=== PATIENT | female | born 2005 | race Two or more races ===

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

== ENCOUNTER 2025-06-29 00:31 | Emergency (ER) | payer OTHER, SELFPAY ==
[2025-06-29 01:08] VITALS: BP 112/66; PULSE 106; RESP 16; TEMP 36.7; O2SAT 97; BMI 20.6
[2025-06-29 01:44] LABS: COVID-19 Test Negative (Negative); IDNOW Serial# 58CA691E; Influenza B2 Negative (Negative)
--- OUTSIDE RECORDS SUMMARY | 2025-06-29 03:32 | XMS_ITS | Clinical Summary ---
Author Organization [facility] it[facility] Address [address] [place] [address] Care Team Providers Care Outsole Splicer Name Role Phone Unavailable Primary Care Provider Unavailabl e Social History Tobacco Use Types Packs/Day Years Used Date Smoking Tobacco: Never Assessed Comments Unknown Sex and Gender Information Value Date Recorded Sex Assigned at Not on file Legal Sex Female 8:39 PM EST Gender Identity Not on file Sexual Orientation Not on file Plan of Treatment Health Maintenance Due Date Last Done Comments Gonorrhea/Chlamydia Screening 2005 Varicella Vaccines (1 of 2 - 13+ 2-dose series) 2018 HPV Vaccines (1 - 3-dose series) 2020 Meningococcal B Vaccine (1 o f 2 - Standard) 2021 Annual Well Child Visit (3-2 1 years old) 07/30/2023 HIV Screening 07/30/2023 Hepatitis C Screening 07/30/2023 Social Influencers of Health Screening 07/30/2023 DTaP,Tdap,and Td Vaccines (1 - Tdap) 2024 Hepatitis B Vaccines (1 of 3 - 19+ 3-dose series) 2024 Depression Screening 07/05/2024 COVID-19 Vaccine (1 - 2024-2 6 season) 2025 Influenza Vaccine (#1) 2025 RSV Immunization Adult Patie nts (1 - 1-dose 75+ series) 2080 HIB Vaccines Aged Out No longer eligi ble based on patient's age to complete this topic Hepatitis A Vaccines Aged Out No long er eligible based on patient's age to complete this topic IPV Vaccines Aged Out No longer eligi ble based on patient's age to complete this topic MMR Vaccines Aged Out No longer eligi ble based on patient's age to complete this topic Meningococcal ACWY Vaccine Aged Out N o longer eligible based on patient's age to complete this topic Pneumococcal Vaccine: Pediat rics (0 to 5 Years) and At-Risk Patients (6 to 49 Years) Aged Out No longer eligible b ased on patient's age to complete this topic RSV Immunization Patients Un santos 20 months Aged Out No longer eligible b ased on patient's age to complete this topic
--- OUTSIDE RECORDS SUMMARY | 2025-06-29 03:32 | XMS_ITS | Encounter Summary ---
Author Organization [facility] Address [address] [place] [id number] Phone Care Team Providers Care Vocational Auto Body Instructor Name Role Phone Janee Peters MD Primary Care Provider [phone] Encounter Details Date Type Department Care Team (Late st Contact Info) Description 04/18/2014 Documentation [facility] Family Medicine [address] [place] [address] Family Medicine, Physician [address] [place] [address] Social History Tobacco Use Types Packs/Day Years Used Date Smoking Tobacco: Never Assessed Comments Unknown Sex and Gender Information Value Date Recorded Sex Assigned at Female 11/01/2024 11:11 AM EDT Legal Sex Female 5:15 PM EDT Gender Identity Female 11/01/2024 11:11 AM EDT Sexual Orientation Queer, pansexual, an d/or questioning 07/29/2023 4:12 PM EST documented as of this encounter Plan of Treatment Not on file documented as of this encounter Visit Diagnoses Not on filedocumented in this encounter Care Teams Vocational Auto Body Instructor Relationship Specialty Start Date End Date Janee Peters MD [address] [place] [id number] PCP - General Pediatrics 03/04/24 documented as of this encounter
--- OUTSIDE RECORDS SUMMARY | 2025-06-29 03:32 | XMS_ITS | Encounter Summary ---
Author Organization [facility] Address [address] [place] [phone] Phone Care Team Providers Care Shipping And Receiving Weigher Name Role Phone Janee Peters MD Primary Care Provider [phone] Encounter Details Date Type Department Care Team (Late st Contact Info) Description 04/19/2014 Documentation [facility] Family Medicine [address] [place] [address] Family Medicine, Physician [address] [place] [address] Social History Tobacco Use Types [...] on filedocumented in this encounter Care Teams Shipping And Receiving Weigher Relationship Specialty Start Date End Date Janee Peters MD [address] [place] [id number] PCP - General Pediatrics 03/04/24 documented as of this encounter
--- OUTSIDE RECORDS SUMMARY | 2025-06-29 03:32 | XMS_ITS | Encounter Summary ---
Author Organization [facility] Address [address] [place] [address] Phone Care Team Providers Care Can Filler Name Role Phone Janee Peters MD Primary Care Provider [phone] Encounter Details Date Type Department Care Team (Late st Contact Info) Description 02/18/2017 Conversion Encounter [facility] [address] [place] [address] Social History Tobacco Use Types Packs/Day Years [...] on filedocumented in this encounter Care Teams Can Filler Relationship Specialty Start Date End Date Janee Peters MD [address] [place] [address] PCP - General Pediatrics 03/04/24 documented as of this encounter
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
--- OUTSIDE RECORDS SUMMARY | 2025-06-29 03:33 | XMS_ITS | Clinical Summary ---
Author Organization [facility] Address [address] [place] [address] Phone Care Team Providers Care Senior Quality Control Inspector Name Role Phone Janee Peters MD Primary Care Provider [phone] Allergies No known active allergies Medications OLANZapine 7.5 MG tablet 4 Active hydrOXYzine 25 MG tabletIndicatio ns:Adjustment disorder with mixed anxiety and depressed mood Take 1 tablet (25 mg total) by mouth every 8 (eight) hours as needed for anxiety. 30 tablet 1 5 Active Scar Treatment Products (ScarAway) gelIndications: Scar Apply 1 Application topically daily as needed (scar). 20 g 1 5 Active Additional Information Patient not taking.Reported on 03/22/2025 Active Problems Problem Noted Date Diagnosed Date Abnormal vision 11/01/2024 Overview (11/01/2024): 10/2024: Seeing eyecare provider at [facility] since 2022. Due for checkup. Assessment & Plan (11/01/2024 11:17 AM EDT): Seeing eyecare provider at [facility] since 2022. Due for checkup. Wheeze 12/01/2023 Overview (12/01/2023): 12/01/2023 (age 18yr): URI symptoms x 2 weeks, exam remarkable only for decreased air movement and slight wheeze. Both much improved after albuterol neb today. - start advair discus 250 1 P BID for short course - follow up 2 weeks Assessment & Plan (12/01/2023 5:04 PM EDT): 12/01/2023 (age 18yr): URI symptoms x 2 weeks, exam remarkable only for decreased air movement and slight wheeze. Both much improved after albuterol neb today. - start advair discus 250 1 P BID for short course - follow up 2 weeks Nicotine abuse 07/14/2023 Assessment & Plan (07/14/2023 11:14 AM EST): Vaping nicotine multiple times a day. Psychiatrist at [facility] gave her a nicotine patch but she is not using. At this time she is not interested in weaning her nicotine use down Marijuana abuse 07/14/2023 Assessment & Plan (11/06/2024 7:01 PM EDT): Counseling done. Assessment & Plan (07/14/2023 11:16 AM EST): Using marijuana more than 5 times a day. Offered referral to help with substance abuse. Patient declines at this time. Patient is about to connect with a psychiatrist on 07/20/2023 and needs to connect with a therapist soon. Met with Cyndie driscoll, behavioral health care advocate, she will help connect Rin to a therapist. Weight loss, abnormal 01/20/2022 Assessment & Plan (07/14/2023 11:13 AM EST): Followed by [facility] gastroenterology. Has an appointment tomorrow. Workup to date has been negative. Patient was given omeprazole but is not taking it. It looks like her weight loss was likely related to her mental health issues. Since she started the olanzapine her weight has gone up. Assessment & Plan (03/23/2022 3:08 PM EDT): Eating much better and her weight is now up. I wonder if her sertraline was contributing to her weight loss. Assessment & Plan (01/29/2022 3:04 PM EDT): I suspect Michaelle is dealing with an eating disorder. They have been trying to do better this past week. Unfortunately they have still lost weight. I am recommending 3 meals and 2 snacks a day. Adding fats to all meals. Adding PediaSure or [place] instant breakfast twice a day. Follow-up for weight check in 2 weeks. A call has been placed to her therapist, Merced, at [facility] requesting callback. Michaelle has signed a release for me to speak to Merced. I plan to alert me again to my concerns about this eating disorder. Assessment & Plan (01/20/2022 1:08 PM EDT): Significant wt loss Thought of food and smell of food makes Rin nauseas No hx laxitive use, vomiting, Does fear being too heavy Has lost 12 # in the past 3 months Will check some screening labs and have Rin follow up with PCP [facility] Stress import of frequent small meals - spoonfuls of PB, protein rich foods. Advised to discussed eating issue with therapist To follow up with Dr Bartholomew PCP in the next 1-2 weeks. Personal history of COVID-19 09/26/2020 Overview (03/23/2022): Covid + 02/2022 Early 07/2020 per family. Tested at [facility] (we have no record of this test). Mother was symptomatic. Desi had very mild symptoms & recovered completely/ 09/26/2020: post covid sport clearance was completed today Assessment & Plan (03/23/2022 3:07 PM EDT): 07/2020 - mild and the middle of February of this year. Also mild illness. Needs COVID 19 booster but will hold for 3 months from her infection in February. Assessment & Plan (03/31/2021 3:42 PM EDT): July 2020. Mild illness. Complete recovery Assessment & Plan (09/26/2020 2:07 PM EDT): post covid sport clearance was completed today Gender identity disorder, adolescent 09/11/2020 Overview (10/30/2022): 09/11/2020 prefers it/it's/they pronouns. Identifies as non-binary. Does not want to be referred to as a girl. Declined referral to Gender Identity clinic at [facility] at this time 08/27/2021: Preferred name Michaelle . Preferred pronouns they/them Diagnosis load October 2022 Assessment & Plan (03/31/2021 3:37 PM EDT): Goes by Rin Pronouns = they, them Adjustment disorder with mixed anxiety and depre ssed mood 05/27/2020 Overview (11/01/2024): Connected to [facility] therapist at [facility] 08/02/20 08/07/2020 : Low dose prozac started 10 mg QOD x 1 week 10/24: states side effects on prozac and zoloft 06/08-06/15/23 - [facility] Started on Olanzapine & hydroxyzine 07/27/23; consult completed. Services will be bridged. [facility] 10/2024: Seeing psychiatrist Dr. Danae Garcia at [facility] every 3 months. Is on Olanzapine 7.5mg. Has not had a panic attack in a while, but at times does get anxious at school. Does not have a therapist per se; says she is close with her mother and also her school counselor. Assessment & Plan (11/01/2024 11:02 AM EDT): Seeing psychiatrist Dr. Danae Garcia at [facility] every 3 months. Is on Olanzapine 7.5mg. Has not had a panic attack in a while, but at times does get anxious at school. Does not have a therapist per se; says she is close with her mother and also her school counselor. Assessment & Plan (07/29/2023 4:35 PM EST): As identified at consult, Michaelle has experienced episodes of depressed and elevated mood. Additional information and monitoring of symptoms is necessary for diagnostic specificity. Symptoms have been persistent since the 6th grade. Most recent episode of elevated mood was in June 2023. Depressed mood or other negative symptoms were denied at this moment. Referral to specialty services for Rin to begin outpatient manager intermediate therapy would be of benefit, considering mental health history. Follow up interventions focus on developing coping strategies would be scheduled, other referrals will be discussed and completed as necessary. PLAN: Follow up with [facility]; In office visit scheduled. Patient goal is to stay positive. Behavioral Recommendations: Attend to scheduled appt Assessment & Plan (07/14/2023 11:12 AM EST): 06/08-06/15/23 - [facility]. Started on Olanzapine & hydroxyzine. Patient has first outpatient appointment with psychiatrist at [facility] on the of this month. Patient has not yet connected with a therapist. Patient was also given a nicotine patch to help her wean off of her nicotine abuse. She has not started the patch. She is not interested in coming off the nicotine at this time. Assessment & Plan (03/23/2022 3:07 PM EDT): Stopped the sertraline at the beginning of February. Did not like the way she felt on it. Stopped seeing Manuela Jeffries and therapist, Merced. Patient and mom feel like they were not helping her. Family would like to connect with a new therapist. Met with medical supervisor home restoration service, Peter Minaya, today. Assessment & Plan (01/20/2022 10:10 AM EDT): Just started on sertraline at [facility]. Is in ongoing therapy advised discussing eating and weight concerns with therapist Assessment & Plan (10/21/2021 7:53 PM EDT): On no meds Assessment & Plan (08/27/2021 3:26 PM EST): Sees therapist weekly from [facility]. Sees Manuela Jeffries from [facility] for medications. Currently on sertraline 25 mg daily with trazodone nightly as needed. Has tried multiple other medications including fluoxetine, Escitalopram, bupropion, mirtazapine. Assessment & Plan (03/31/2021 3:37 PM EDT): Followed by Manuela Jeffries at [facility]. Started on Escitalopram at the end of February. Recently the dose was increased to 5 mg. Side effects of this medication could include nausea, diarrhea, abdominal pain. Has an appointment to see Manuela Jeffries today and they will discuss this at that visit. Michaelle is not excited to be back in school, certainly not in person. Assessment & Plan (10/29/2020 2:31 PM EDT): I am concerned that the increase of the sertraline dose from 25 mg to 50 mg may be triggering Michaelle's increase in suicidal thoughts and also the increased motor movements. Will wean sertraline from 50 mg to 25 mg daily Follow-up in 1 week, unless already admitted to [facility] bed. I am hoping that once [facility] that psychiatry will take over prescribing medication. Michaelle did not tolerate fluoxetine- Rin believed it caused them to start cutting. Sertraline 25 mg was felt to be ineffective. 50 mg may be causing current symptoms. Patient has an appointment tomorrow with Maryellen Singh, behavioral health provider. She met briefly with Maryellen driscoll. Assessment & Plan (10/24/2020 3:13 PM EDT): Increase sertraline to 50 mg Q HS ( 2 tabs of the 25 mg) Follow up in 1 week Will ask provider at [facility] to follow weekly until Desi is connected to [facility] Michaelle is to go back to in person school next week. They are concerned about this. But Michaelle's mother thinks it will be good for them to get back to school. While the PHQ-9 and SANDY-7 are both very positive Michaelle denies any risk of SI, their mother is keeping a close eye on them Assessment & Plan (09/26/2020 1:57 PM EDT): Increase sertraline to 25 mg QD To see maryellen Singh today - family missed last appointment - they both forgot. Desi & Desi's mother are aware that they must see provider if they are to get SSRI from md Follow up in 1-2 weeks on 25 mg of sertraline, if doing well will have follow up in another month Assessment & Plan (09/11/2020 1:51 PM EST): Reviewed Safety plan done by Cassidy Singh ( therapist) 09/02/20 patient did verbal contract for safety with me today Will start sertraline 12.5 mg Follow up in person in 1 week. If doing well will increase to 25 mg QD Discussed Non-Binary gender identity & request not to be identified as a girl. Desi is not looking for further intervention on gender issues at this time Desi requests that all visits be in person. Desi prefers to get out of the house Desi is hoping that provider can find in-person groups that it can attend Assessment & Plan (08/07/2020 4:46 PM EST): After counseling the patient/family on risks and benefits of SSRIs, we will start Fluoxetine at a trial dose of 10 mg Q O day for a week. Then QD for another week, if there were no side effects noted on Q O Day dosing. I will have them follow up with their provider in a week.The provider has agreed to work with me on monitoring Desi for medication side effects & will follow her closely until she is stable on a therapeutic dose. The family/patient knows to call immediately for significant side effects, especially significant agitation or any new thoughts about self-harm. Follow up with me in person (or virtually) in 2 weeks. Call sooner prn Assessment & Plan (08/01/2020 9:43 AM EST): Patient says she thinks of suicide but would never do it because it would hurt She denies any plan She talks with her mother about it She verbally contracts for safety with me & her mother. Crisis # discussed I will get her in to see her therapist w/in 1 week We discussed starting Fluoxetine - risks vs benefits, side effects. Patient must stay engage in therapy if I am to provide medication - she agrees Discussed improving sleeping habits, exercise & diet Sleep Hygiene reviewed Agree with getting Core Eval done by school Will arrange for medication to start soon as appointment with therapist is made Intrinsic atopic dermatitis 11/20/2009 Overview (11/01/2024): 10/2024: Some dry patches. Using Dove. Assessment & Plan (11/01/2024 11:19 AM EDT): Some dry patches. Using Dove. Assessment & Plan (05/01/2020 3:44 PM EDT): No issues No meds Resolved Problems Problem Noted Date Diagnosed Date Resolved Date History of UTI 03/23/2022 07/14/2023 Overview (03/23/2022): 03/06/2022 and diagnosed with a UTI. Her urine culture grew Klebsiella and she was treated with cefdinir. Assessment & Plan (03/23/2022 3:12 PM EDT): Will check UA today since Rin complains of intermittent abdominal pain. If UA is abnormal we will run a urine culture. No current urinary symptoms. Patient says her abdominal pain is only associated with eating. Nausea 10/21/2021 01/29/2022 Assessment & Plan (10/21/2021 12:26 PM EDT): I suggest learning breathing techniques to help Scratches 10/21/2021 01/29/2022 Overview (10/21/2021): On forearm, ?scratching self. Assessment & Plan (10/21/2021 7:57 PM EDT): Not addressed today. Will send to Dr. Bartholomew Encounters Date Type Department Care Team Description 05/22/2025 Telephone [facility] [address] [place] [address] Deepti Banerjee LPN Overdue labs from Last 3 Months Immunizations Immunization Administration Dates Next Due COVID-19 Pfizer, seasonal, 12+ years 07/14/2023 DTaP 01/01/2010 DTaP 5 10/04/2006, 6,2005,08/10 H1N1 06/27/2009,05/10/2009 HPV Vaccine 9 Valent 09/27/2017,06/08/2016 Hep A, ped/adol 09/27/2017,12/06/2006,06/30/2006 Hep B, ped/adol 03/11/2006,2005,2005 Hib (HbOC) 10/04/2006 Hib (PRP-T) 2005,2005,2005 IPV 01/01/2010, 6,2005,08/10 Influenza Split 07/07/2012,03/19/2011 Influenza, injectable, quadrivalent 04/10/2016,1 07/14/2014 Influenza, injectable, quadr ivalent, preservative free 07/14/2023,03/23/2022,03/31/2021,05/03,08/28/2019,09/27/2017,07/17/2013 Influenza, injectable, trivalent 06/27/2009,06/05 Influenza, injectable, triva lent, preservative free 11/01/2024 MMR 01/01/2010 MMRV 06/30/2006 Meningococcal B Trumenba 11/01/2024 Meningococcal Conj (Menactra) MCV4P 06/08/2016 Meningococcal Conj (Menquadfi) MCV4TT 07/14/2023 Pneumococcal Conjugate 10/04/2006,2005,2005,08/10 Tdap 12/27/2021,06/08/2016 Varicella 01/01/2010 Family History Medical History Relation Name Comments Asthma Brother Kg Mcdonald Eczema Brother Kg Mcdonald Obesity Brother Kg Mcdonald Obesity Father Kg Mcdonald Diabetes Maternal Grandfather Hypertension Maternal Grandmother Anxiety disorder Mother Laquita Fernandez Depression Mother Laquita Fernandez Diabetes Paternal Grandfather Stroke Paternal Grandmother Relation Name Status Comments Brother Kg Mcdonald Alive Brother: atopi c derm Father Kg Mcdonald Alive Father: Alive a nd well Maternal Grandfather Materna l grandfather: Diabetes mellitus Maternal Grandmother Alive Materna l aunt: Cancer, Cirrhosis, No Family history of No history of *Sudden /IN under 55, No Family history of No history of Hyperlipidemia Mother Laquita Fernandez Alive Mother: [place] castellanos and well Other Family history of Sudden /IN under age 55, Family history of Diabetes mellitus, Family history of Elevated cholesterol, Family history of *Dental caries, No family history of *CVA/Stroke, No family history of *Heart Disease, Family history of Migraines, Family history of Obesity Paternal Grandfather Paterna l grandfather: Hypertension, Diabetes, Parkinson, Seizures Paternal Grandmother Paterna l aunt: Cancer -ovarian Social History Tobacco Use Types Packs/Day Years Used Date Smoking Tobacco: Never Smokeless Tobacco: Never Alcohol Use Standard Drinks/Week Comments Never 0 (1 standard drink = 0.6 oz pur e alcohol) Hunger/Food Answer Date Recorded In the last 12 months, did y ou or your family ever eat less than you felt you should because there wasn't enough money for food? No 11/01/2024 Stable Housing Answer Date Recorded Are you worried that in the next 2 months you may not have stable housing? No 11/01/2024 Transportation Concerns Answer Date Rec orded In the last 12 months, have you or your family ever had to go without healthcare because you didn't have a way to get there? No 11/01/2024 Hazards in Home Answer Date Recorded Think about the place you li ve. Do you have problems with any of the following? Pests (mice or roaches), mold, no/not working smoke detectors, water leaks, no window guards. No 2024 Financing Utilities Answer Date Recorde d In the last 12 months, has t he [place], gas, oil, or water Favor threatened to shut off your services in your home? No 11/01/2024 Safety at Home Answer Date Recorded Are you or your family worried about feeling saf e in your home? No 11/01/2024 Outside Support Answer Date Recorded Do you feel that you need mo re support from other people or programs to help you care for yourself or your family? No 11/01/2024 Understanding Health Concerns Answer Da te Recorded Do you need help understandi ng your or your child's healthcare needs (diagnosis, medications, plan, etc.)? No 11/01/2024 Financing Health Concerns Answer Date R ecorded In the last 12 months, was t here a time when your child needed to see a doctor or get medications or supplies but could not because of cost? No 11/01/2024 Missing School or Work Answer Date Tyrone rded Did you or your child miss s chool or work because of a health problem that could have been avoided? No 11/01/2024 Child Education Answer Date Recorded Do you have concerns about y our/your child's learning or behavior in school, preschool, or daycare? No 11/01/2024 Comments No Sex and Gender Information Value Date Recorded Sex Assigned at Female 11/01/2024 11:11 AM EDT Legal Sex Female 5:15 PM EDT Gender Identity Female 11/01/2024 11:11 AM EDT Sexual Orientation Queer, pansexual, an d/or questioning 07/29/2023 4:12 PM EST Last Filed Vital Signs Vital Sign Reading Time Taken Comments Blood Pressure 109/74 01/29/2025 8:31 AM EDT Pulse 83 01/29/2025 8:31 AM EDT Temperature 37.7 C (99.8 F) 03/22/2025 9:03 AM EDT Respiratory Rate - - Oxygen Saturation 97% 12/01/2023 4:10 PM EDT Inhaled Oxygen Concentration - - Weight 53.4 kg (117 lb 12.8 oz) 03/22/2025 9:03 AM EDT Height 158.8 cm (5' 2.5 ) 11/01/2024 10 :43 AM EDT Body Mass Index 21.2 11/01/2024 10:43 AM EDT Plan of Treatment Health Maintenance Due Date Last Done Comments HIV Screening 2020 Hepatitis C Screening 2023 LDL-C/Cholesterol 07/14/2024 07/14/2023 Influenza Vaccines (#1) 2025 11/02/19, 07/14/2023, 03/23/2022, Additional history exists COVID-19 Vaccine ( - 2024-2 6 season) 2025 07/14/2023, 03/21/2021, 02/18/2021 Men B Vaccine (2 of 2 - Trum enba SCDM 2-dose series) 05/03/2025 11/01/2024 Glucose/HbA1C 03/22/2026 03/22/2025, 07/2 , 01/18/2018 DTaP,Tdap,and Td Vaccines (8 - Td or Tdap) 12/28/2031 12/27/2021, 06/08/2016, 01/01/2010, Additional history exists Hepatitis B Vaccines Completed 03/11/2006, 2005, 2005 HIB Vaccines Completed 10/04/2006, 12/2005, 2005, Additional history exists Pneumococcal Vaccine Completed 10/04/2006, 2005, 2005, Additional history exists IPV Vaccines Completed 01/01/2010, 01/2006, 2005, Additional history exists MMR Vaccines Completed 01/01/2010, 06/30/2006 Varicella Vaccines Completed 01/01/2010, 06/30/2006 HPV Vaccines Completed 09/27/2017, 06/08/2016 Hepatitis A Vaccines Completed 09/27/2017, 12/06/2006, 06/30/2006 Meningococcal Vaccine Completed 07/14/2023, 016 Chlamydia and Gonorrhea Screening Completed 02/01/2025, 11/01/2024, 07/26/2024, Additional history exists Procedures * Due to [place] law, this organization might not be sharing sensitive test results. Procedure Name Priority Date/Time Associated Diagnosis Comments POCT URINALYSIS DIPSTICK Routine 03/22/2025 9:12 AM EDT Dysuria CHLAMYDIA AND GONORRHEA, AMPLIFIED Routine 02/01/2025 8:52 AM EDT Encounter for screening examination for chlamydial infection LIPID PANEL Routine 07/14/2023 11:36 AM EST Lipid screening from Last 3 Months or Most Recently Relevant to Health Maintenance Results * Due to [place] law, this organization might not be sharing sensitive test results. * (ABNORMAL) POCT Urinalysis Dipstick (03/22/2025 9:12 AM EDT) Leukocytes, Urine 3+(A) Negative n [facility] Comment:500 Pierre/uL Nitrite, Urine +(A) Negative n eg pos [facility] Urobilinogen, Urine 1+ 0.1 - 1 [facility] Comment:2 mg/dL Protein, Urine neg Negative n [facility] pH, Urine 6.0 4.6 - 10 [facility] BLOOD 1+(A) Negative n [facility] Comment:25 Arturo/uL Specific [place], Urine 1.015 1.0003 - 1.03 [facility] Ketones, Urine neg Negative n [facility] Bilirubin, Urine, POC 1+(A) Negative n eg [facility] Comment:1 mg/dL Glucose neg Negative n [facility] Urine 03/22/2025 9:12 AM EDT 03/22/2025 9:12 AM EDT Narrative [facility] - 03/22/2025 9:12 AM EDT Charlie ([id number]) [facility] Gynecologist: 01 Testing Performed at [facility] [address] [place] [address] Funeral Sales Manager: Eva Max DO CLIA: [id number] Chelsie Armas NP POINT OF CARE TEST ORDERABLES Final Result Performing Organization Address City/State/[facility] Co de Phone Number [facility] [address] [place] [address] * Chlamydia and Gonorrhea, Amplified (02/01/2025 8:52 AM EDT) C trach TORRES Negative Negative [facility] N gonorrhoeae TORRES Negative Negative [facility] Urine (Urine) 02/01/2025 8:5 2 AM EDT 02/01/2025 Comment:UR Narrative [facility] - 02/02/2025 3:05 PM EDT Performed at: [address] [facility] [address], [place] [id number] Funeral Sales Manager: Scott Craig MD, Phone: [phone] us Monserrat Godwin NP LAB MICROBIOLOGY - GENERAL ORDER SHARA Final Result Performing Organization Address City/[facility] Co de Phone Number [facility] [address] [place] [address] * Lipid panel (07/14/2023 11:36 AM EST) [facility] Cholesterol, Total 161 (<170) MG/DL [facility] HDL 65 (>45) MG/DL [facility] Non-HDL Cholesterol 96 (<120) MG/DL [facility] Comment: Testing performed or reported by [facility], a Service of [facility], [address] [place] [id number] Scott Craig MD, Lance Crewmember [facility]# [id number] Blood 07/14/2023 11:3 6 AM EST 07/14/2023 11:39 AM EST us Farzana Bartholomew MD LAB BLOOD ORDERABLES Final Resul t Performing Organization Address City/[facility] Co de Phone Number [facility] from Last 3 Months or Most Recently Relevant to Health Maintenance Insurance [facility] Class Central [facility] Class Central Care Teams Senior Quality Control Inspector Relationship Specialty Start Date End Date Janee Peters MD [address] [place] [id number] PCP - General Pediatrics 03/04/24
--- OUTSIDE RECORDS SUMMARY | 2025-06-29 03:33 | XMS_ITS | Encounter Summary ---
Author Organization [facility] Address [address] [place] [id number] Phone Care Team Providers Care Manufacturing Storeperson Name Role Phone Janee Peters MD Primary Care Provider [phone] Encounter Details Date Type Department Care Team (Late st Contact Info) Description 04/20/2014 Documentation [facility] [place] Family Medicine [address] [place] [address] Family Medicine, Physician [address] [place] [address] Social History Tobacco Use Types [...] on filedocumented in this encounter Care Teams Manufacturing Storeperson Relationship Specialty Start Date End Date Janee Peters MD [address] [place] [id number] PCP - General Pediatrics 03/04/24 documented as of this encounter
--- OUTSIDE RECORDS SUMMARY | 2025-06-29 03:33 | XMS_ITS | Encounter Summary ---
Author Organization [facility] Address [address] [place] [id number] Phone Care Team Providers Care Finding Fastener Name Role Phone Janee Peters MD Primary Care Provider [phone] Encounter Details Date Type Department Care Team (Late st Contact Info) Description 04/17/2014 Documentation [facility] [place] [address] [place] [address] Family Medicine, Physician [address] [place] [address] Social History Tobacco Use Types [...] on filedocumented in this encounter Care Teams Finding Fastener Relationship Specialty Start Date End Date Janee Peters MD [address] [place] [phone] PCP - General Pediatrics 03/04/24 documented as of this encounter
[2025-06-29 04:05] VITALS: BP 103/68; PULSE 95; RESP 18; TEMP 36.4; O2SAT 98
--- NOTE | 2025-06-29 05:36 | ED.URI ---
HPI - URI/Sore Throat General Chief Complaint: Upper Respiratory Symptoms Stated Complaint: resp symptoms Time Seen by Provider: 06/29/25 03:23 Source: patient Mode of arrival: ambulatory Limitations: no limitations History of Present Illness ED Provider: Dr. Twila Caldwell HPI Narrative: 20 year old female previously healthy presenting with approximately 2?3 days of systemic and gastrointestinal symptoms. She reports subjective fever (mother has been ?touching my head? to check temperature), vomiting that began last evening around 19:30 and has prevented her from keeping Tylenol or other medications down, and ongoing diarrhea. She notes prior throat pain with visible ?red west? on her posterior pharynx, though the soreness has improved. She describes minimal cough, occurring mainly with forceful episodes, and denies significant shortness of breath except when coughing hard. She has taken one dose of acetaminophen yesterday but vomited shortly afterward. No other OTC medications taken. She is on antipsychotic medication and denies medication allergies. She is unsure if she received this season?s influenza vaccine, though she typically does so annually. She has been around others who are ill but offers no specific exposure details. Related Data Home Medications ?Medication ?Instructions ?Recorded ?Confirmed omeprazole 20 mg capsule,delayed 20 mg PO DAILY 06/09/23 06/09/23 release Previous Rx's ?Medication ?Instructions ?Recorded hydroxyzine HCl 25 mg tablet 25 mg PO BID PRN Anxiety 30 days 06/14/23 #60 tabs nicotine (polacrilex) 2 mg gum 2 mg buccal Q2H PRN Nicotine 06/14/23 Cravings 30 days #120 ea nicotine 14 mg/24 hr daily 14 mg transdermal DAILY 28 days 06/14/23 transdermal patch #28 ea olanzapine 7.5 mg tablet 7.5 mg PO BEDTIME 30 days #30 tabs 06/14/23 peg 400-propylene glycol 0.4 %-0.3 2 drp ophthalmic (eye) Q12H PRN 06/14/23 % eye gel drops (Systane Gel) Eye discharge/dry eyes 30 days #10 mL famotidine 20 mg tablet (Pepcid) 20 mg PO DAILY PRN abdominal 03/01/24 discomfort #30 tabs ondansetron 4 mg disintegrating 4 mg PO Q8H PRN nausea and 03/01/24 tablet vomiting #20 tabs promethazine 12.5 mg tablet 12.5 mg PO Q4-6H PRN nausea and 03/03/24 vomiting #10 tabs sucralfate 1 gram tablet (Carafate) 1 g PO BID #14 tabs 03/03/24 diphenhydramine HCl 25 mg capsule 50 mg (2 x 25 mg) PO Q6H PRN 04/01/24 headache, nausea, vomiting #20 caps metoclopramide HCl 10 mg tablet 10 mg PO Q6H PRN nausea and 04/01/24 (Reglan) vomiting #15 tabs ondansetron 8 mg disintegrating 8 mg PO Q8H PRN nausea and 04/01/24 tablet vomiting #15 tabs benzonatate 100 mg capsule 100 mg PO TID PRN cough #15 caps 06/26/24 benzonatate 100 mg capsule 100 mg PO TID PRN cough #10 caps 06/29/25 ondansetron 4 mg disintegrating 4 mg PO Q8H PRN nausea and 06/29/25 tablet vomiting #10 tabs Allergies Allergy/AdvReac Type Severity Reaction Status Date / Time No Known Allergies Allergy Verified 07/01/25 11:52 Review of Systems Review of Systems: as per HPI, full review of systems performed and negative but for the above mentioned pertinent positives and negatives. [facility] Past Medical History Medical History Medical clearance for psychiatric admission Eating disorder Seasonal depression Anxiety Depression Social History Social History Household Members: Family Housing: Apartment Alcohol intake: never Patient Tobacco Use Status: Never used Tobacco e-Cigarette/Vaping Use: Currently Using Substance Use Type: Marijuana Advance Directives: No Advance Directives Information Provided: No Do you have a plan to hurt others: No Plan service: No Sexual orientation: Straight/Heterosexual Physical Exam Exam: Exam: GENERAL: Ill-Appearing, appears uncomfortable. SKIN: Normal skin color for ethnicity, warm, dry, no rashes noted. HEENT:? Normocephalic, atraumatic, no stridor, dry mucous membranes, dentition intact, EOMI. NECK: Soft, supple, full ROM, midline structures nontender, no step-offs, no deformities, no lymphadenopathy. CHEST: Heart regular tachycardia, no murmurs, symmetric chest rise and fall. PULMONARY: Clear to auscultation bilaterally, diminished at the bases, no labored breathing, no wheezes/rhales/rhonchi. ABDOMINAL: Soft, nondistended, nontender, positive bowel sounds in all quadrants. : Deferred. MUSCULOSKELETAL: Normal tone, full range of motion, no deformities, no peripheral edema. NEURO: Alert and oriented x3, CN II through XII intact, equal strength and sensation bilateral upper and lower extremities, no focal neurologic deficits.? PSYCHIATRIC: Flat affect, fluid speech, good eye contact and appropriate demeanor. Vital Signs: Vital Signs: Last Vital Signs Temp 97.9 F 06/29/25 05:57 Pulse 99 06/29/25 05:57 Resp 16 06/29/25 05:57 BP 106/72 06/29/25 05:57 Pulse Ox 98 06/29/25 05:57 O2 Del Method Room Air 06/29/25 04:05 BMI result Body Mass Index 20.6 Medications Administered Discontinued Medications Generic Name Dose Route Start Last Admin Trade Name Eanq PRN Reason Stop Dose Admin Ibuprofen 400 mg 06/29/25 05:24 06/29/25 05:34 Ibuprofen 400 Mg Tablet PO 06/29/25 05:25 400 mg ONCE ONE Administration Ondansetron HCl 4 mg 06/29/25 05:24 06/29/25 05:35 Ondansetron Odt 4 Mg Tab.Rapdis TRANSLINGU 06/29/25 05:25 4 mg ONCE ONE Administration Medical Decision Making Medical Decision Making MDM Narrative: Patient presents today with flu-like symptoms. Differential diagnosis includes influenza, coronavirus, pneumonia, upper respiratory infection, among others. Most importantly, this patient is not in any acute respiratory distress. They have normal oxygen levels at room air. Problem #1: Influenza-like viral syndrome Assessment: Likely viral illness (influenza) given time course and symptom cluster. Patient outside ideal 72-hour window for oseltamivir initiation. Tamiflu also carries risk of worsening current GI symptoms. Plan: Hold oseltamivir at this time; risks outweigh benefits. Evidence supports holding oseltamivir in otherwise healthy adults outside the ideal window, as benefit is modest and GI risks may outweigh advantages. Provide symptomatic therapy: prescription cough medicine for home use. Return precautions reviewed: worsening symptoms, fever >7 days, or persistent vomiting despite medication. Problem #2: Nausea, vomiting, and dehydration Assessment: Persistent emesis preventing oral intake; clinical signs of dehydration. Plan: Administer antiemetic (nausea medication) in the ED. Encourage oral hydration once nausea controlled. Return if unable to keep fluids down or if symptoms worsen. Patient verbalized understanding and agreement with the above plan and requested ice water after antiemetic administration. Differential Diagnosis Differential Diagnoses: The differential diagnosis associated with the presentation includes (as above) Admission/Observation Consideration of admission/observation: Escalation of care including admission/observation considered Lab Data MDM Lab Attestation statement: I reviewed the patient's lab results. Labs: Lab Results 06/29/25 Range/Units 01:14 COVID-19 ([facility]) Negative (Negative) COVID-19 Clin Com See Note Influenza Type A ([facility]) Positive A (Negative) Influenza Type B ([facility]) Negative (Negative) Influenza A & B Note See Note External Record Review External record reviewed: Inpatient record Prescription Management I considered prescription management with: Pain Medication and Antiviral Social Determinants Patient?s care significantly limited by Social Determinants of Health including: Other Social Determinant of Health Discharge Plan Discharge Clinical Impression: Influenza A Patient Disposition: Home, Self-Care Instructions: Influenza (ED) Additional Instructions: Keep your mask on if you have to go into public for any reason while you are ill. Use Tylenol and Motrin around the clock for fever and body aches. Use Zofran (ondansetron) as needed for nausea. Return to the emergency department with any new or worsening symptoms including: Worsening shortness of breath, continued fevers despite medications, inability to tolerate food or drink. Call 911 with any medical emergency. Prescriptions: New ondansetron 4 mg tablet,disintegrating 4 mg PO Q8H PRN (Reason: nausea and vomiting) Qty: 10 0RF benzonatate 100 mg capsule 100 mg PO TID PRN (Reason: cough) Qty: 10 0RF No Action omeprazole 20 mg Capsule,Delayed Release(Dr/Ec) 20 mg PO DAILY nicotine 14 mg/24 hr Patch 24 Hour 14 mg transdermal DAILY 28 Days Qty: 28 1RF nicotine (polacrilex) 2 mg Gum 2 mg buccal Q2H PRN (Reason: Nicotine Cravings) 30 Days Qty: 120 1RF olanzapine 7.5 mg Tablet 7.5 mg PO BEDTIME 30 Days Qty: 30 1RF Systane Gel 0.4-0.3 % Drops,Gel 2 drp ophthalmic (eye) Q12H PRN (Reason: Eye discharge/dry eyes) 30 Days Qty: 10 0RF hydroxyzine HCl 25 mg Tablet 25 mg PO BID PRN (Reason: Anxiety) 30 Days Qty: 60 1RF promethazine 12.5 mg tablet 12.5 mg PO Q4-6H PRN (Reason: nausea and vomiting) Qty: 10 0RF sucralfate [Carafate] 1 gram tablet 1 g PO BID Qty: 14 0RF famotidine [Pepcid] 20 mg tablet 20 mg PO DAILY PRN (Reason: abdominal discomfort) Qty: 30 0RF ondansetron 4 mg tablet,disintegrating 4 mg PO Q8H PRN (Reason: nausea and vomiting) Qty: 20 0RF diphenhydramine HCl 25 mg capsule 50 mg PO Q6H PRN (Reason: headache, nausea, vomiting) Qty: 20 0RF metoclopramide HCl [Reglan] 10 mg tablet 10 mg PO Q6H PRN (Reason: nausea and vomiting) Qty: 15 0RF ondansetron 8 mg tablet,disintegrating 8 mg PO Q8H PRN (Reason: nausea and vomiting) Qty: 15 0RF benzonatate 100 mg capsule 100 mg PO TID PRN (Reason: cough) Qty: 15 0RF Stand Alone Forms: Work/School Release Interventions: ED Discharge Assessment Last Done: 06/29/25 05:57 Discharge Date/Time: 06/29/25 05:57 Print Language: [place]
[2025-06-29 05:53] VITALS: BP 106/72; PULSE 99; RESP 16; TEMP 36.6; O2SAT 98
[2025-06-29 05:57] VITALS: BP 106/72; PULSE 99; RESP 16; TEMP 36.6; O2SAT 98
== END 2025-06-29 05:57 | disposition home or self-care (01) ==
PROVIDERS: Emergency Provider Emergency Medicine; PCP Pediatrics
DX: J10.1 Influenza due to other identified influenza virus with other respiratory manifestations (principal); R50.9 Fever, unspecified; R05.9 Cough, unspecified; R06.02 Shortness of breath
CPT/HCPCS: 87502; 87635; 99283; 99284

== ENCOUNTER 2025-07-01 11:28 | Emergency (ER) | payer OTHER, SELFPAY ==
[2025-07-01 11:49] VITALS: BP 105/68; PULSE 67; RESP 18; TEMP 36.7; O2SAT 95; BMI 20.4
--- NOTE | 2025-07-01 11:50 | ED.GENADULT ---
HPI - General Adult General Chief complaint: General Medical Stated complaint: COUGH NAUSEA VOMITING Related Data Home Medications ?Medication ?Instructions ?Recorded ?Confirmed omeprazole 20 mg capsule,delayed 20 mg PO DAILY 06/09/23 06/09/23 release Previous Rx's ?Medication ?Instructions ?Recorded hydroxyzine HCl 25 mg tablet 25 mg PO BID PRN Anxiety 30 days 06/14/23 #60 tabs nicotine (polacrilex) 2 mg gum 2 mg buccal Q2H PRN Nicotine 06/14/23 Cravings 30 days #120 ea nicotine 14 mg/24 hr daily 14 mg transdermal DAILY 28 days 06/14/23 transdermal patch #28 ea olanzapine 7.5 mg tablet 7.5 mg PO BEDTIME 30 days #30 tabs 06/14/23 peg 400-propylene glycol 0.4 %-0.3 2 drp ophthalmic (eye) Q12H PRN 06/14/23 % eye gel drops (Systane Gel) Eye discharge/dry eyes 30 days #10 mL famotidine 20 mg tablet (Pepcid) 20 mg PO DAILY PRN abdominal 03/01/24 discomfort #30 tabs ondansetron 4 mg disintegrating 4 mg PO Q8H PRN nausea and 03/01/24 tablet vomiting #20 tabs promethazine 12.5 mg tablet 12.5 mg PO Q4-6H PRN nausea and 03/03/24 vomiting #10 tabs sucralfate 1 gram tablet (Carafate) 1 g PO BID #14 tabs 03/03/24 diphenhydramine HCl 25 mg capsule 50 mg (2 x 25 mg) PO Q6H PRN 04/01/24 headache, nausea, vomiting #20 caps metoclopramide HCl 10 mg tablet 10 mg PO Q6H PRN nausea and 04/01/24 (Reglan) vomiting #15 tabs ondansetron 8 mg disintegrating 8 mg PO Q8H PRN nausea and 04/01/24 tablet vomiting #15 tabs benzonatate 100 mg capsule 100 mg PO TID PRN cough #15 caps 06/26/24 benzonatate 100 mg capsule 100 mg PO TID PRN cough #10 caps 06/29/25 ondansetron 4 mg disintegrating 4 mg PO Q8H PRN nausea and 06/29/25 tablet vomiting #10 tabs Allergies Allergy/AdvReac Type Severity Reaction Status Date / Time No Known Allergies Allergy Verified 07/01/25 11:52 [facility] Past Medical History Medical History Medical clearance for psychiatric admission Eating disorder Seasonal depression Anxiety Depression Social History Social History Household Members: Family Housing: Apartment Alcohol intake: never Patient Tobacco Use Status: Never used Tobacco e-Cigarette/Vaping Use: Currently Using Substance Use Type: Marijuana Advance Directives: No Advance Directives Information Provided: No Do you have a plan to hurt others: No Plan service: No Sexual orientation: Straight/Heterosexual Physical Exam ED Vital Signs: Vital Signs - 24 hr 07/01/25 11:49 Temperature 98.1 F Pulse Rate 67 Respiratory Rate 18 Blood Pressure 105/68 Pulse Oximetry 95 Oxygen Delivery Method Room Air BMI result Body Mass Index 20.4 Course Course Course Narrative: Rapid medical examination performed in triage by Malissa Mcdonald PA-C: Patient is a 20 year old female presenting to the emergency department feeling generally unwell. Patient states that she was diagnosed with the flu 2 days ago and continues to feel poorly. Patient states that she has not been eating and drinking well and is concerned she is dehydrated. Detailed physical exam and review of systems are deferred to the district manager primary care sales. Labs ordered. Patient placed back in the waiting room pending room availability and results. Patient left the department without completing treatment. Patient left the department before myself or any of the other emergency department clinicians could explain to or review with the patient; physical exam findings, need or lack there of for additional testing, need or lack there of for a procedure to be performed, need or lack there of for hospital admission / transfer, need or lack there of for prescription medication, treatment options, or a treatment plan. Patient's limited physical exam performed in triage showed a non-toxic individual with appropriate breathing, alert and oriented, and ambulating without assistance. Discharge Plan Discharge Clinical Impression: Diagnosis unknown Patient Disposition: Left W/O Completing Treatment Prescriptions: No Action omeprazole 20 mg Capsule,Delayed Release(Dr/Ec) 20 mg PO DAILY nicotine 14 mg/24 hr Patch 24 Hour 14 mg transdermal DAILY 28 Days Qty: 28 1RF nicotine (polacrilex) 2 mg Gum 2 mg buccal Q2H PRN (Reason: Nicotine Cravings) 30 Days Qty: 120 1RF olanzapine 7.5 mg Tablet 7.5 mg PO BEDTIME 30 Days Qty: 30 1RF Systane Gel 0.4-0.3 % Drops,Gel 2 drp ophthalmic (eye) Q12H PRN (Reason: Eye discharge/dry eyes) 30 Days Qty: 10 0RF hydroxyzine HCl 25 mg Tablet 25 mg PO BID PRN (Reason: Anxiety) 30 Days Qty: 60 1RF promethazine 12.5 mg tablet 12.5 mg PO Q4-6H PRN (Reason: nausea and vomiting) Qty: 10 0RF sucralfate [Carafate] 1 gram tablet 1 g PO BID Qty: 14 0RF ondansetron 4 mg tablet,disintegrating 4 mg PO Q8H PRN (Reason: nausea and vomiting) Qty: 10 0RF benzonatate 100 mg capsule 100 mg PO TID PRN (Reason: cough) Qty: 10 0RF famotidine [Pepcid] 20 mg tablet 20 mg PO DAILY PRN (Reason: abdominal discomfort) Qty: 30 0RF ondansetron 4 mg tablet,disintegrating 4 mg PO Q8H PRN (Reason: nausea and vomiting) Qty: 20 0RF diphenhydramine HCl 25 mg capsule 50 mg PO Q6H PRN (Reason: headache, nausea, vomiting) Qty: 20 0RF metoclopramide HCl [Reglan] 10 mg tablet 10 mg PO Q6H PRN (Reason: nausea and vomiting) Qty: 15 0RF ondansetron 8 mg tablet,disintegrating 8 mg PO Q8H PRN (Reason: nausea and vomiting) Qty: 15 0RF benzonatate 100 mg capsule 100 mg PO TID PRN (Reason: cough) Qty: 15 0RF Discharge Date/Time: 07/01/25 17:14
--- OUTSIDE RECORDS SUMMARY | 2025-07-01 17:11 | XMS_ITS | Clinical Summary ---
Author Organization [facility] Address [address] [place] [address] Care Team Providers Care Doper Name Role Phone Unavailable Primary Care Provider [...]
--- OUTSIDE RECORDS SUMMARY | 2025-07-01 17:11 | XMS_ITS | Clinical Summary ---
Author Organization [facility] Address [address] [place] [address] Phone Care Team Providers Care Veneer Sheet Repairer Name Role Phone Janee Peters MD Primary Care Provider [phone] Allergies No known active allergies Medications OLANZapine [...] Overview (11/01/2024): 10/2024: Seeing eyecare provider at [facility] since 2022. Due for checkup. Assessment & Plan (11/01/2024 11:17 AM EDT): Seeing eyecare provider at [facility] since 2022. Due for checkup. Wheeze [...] nicotine multiple times a day. Psychiatrist at [facility] gave her a nicotine patch but she [...] soon. Met with Cyndie driscoll, behavioral health personal care aid, she will help connect Rin to a therapist. Weight loss, abnormal 01/20/2022 Assessment & Plan (07/14/2023 11:13 AM EST): Followed by [facility] gastroenterology. Has an appointment tomorrow. Workup to [...] fats to all meals. Adding PediaSure or Alabaster instant breakfast twice a day. Follow-up for weight check in 2 weeks. A call has been placed to her therapist, [place], at [facility] in [facility] requesting [...] 02/2022 Early 07/2020 per family. Tested at [facility] (we have no record of this test). [...] Declined referral to Gender Identity clinic at [facility] at this time 08/27/2021: Preferred name Michaelle . Preferred pronouns they/them Diagnosis load October 2022 Assessment & Plan (03/31/2021 3:37 PM EDT): Goes by Rin Pronouns = they, them Adjustment disorder with mixed anxiety and depre ssed mood 05/27/2020 Overview (11/01/2024): Connected to [facility] therapist at [facility] 08/02/20 08/07/2020 : Low dose prozac started 10 mg QOD x 1 week 10/24: states side effects on prozac and zoloft 06/08-06/15/23 - [facility]. Started on Olanzapine & hydroxyzine 07/27/23; consult completed. Services will be bridged. [facility] 10/2024: Seeing psychiatrist Dr. Danae Garcia at [facility] every 3 months. Is on Olanzapine 7.5mg. Has not had a panic attack in a while, but at times does get anxious at school. Does not have a therapist per se; says she is close with her mother and also her school counselor. Assessment & Plan (11/01/2024 11:02 AM EDT): Seeing psychiatrist Dr. Danae Garcia at [facility] every 3 months. Is on Olanzapine 7.5mg. [...] completed as necessary. PLAN: Follow up with [facility]; In office visit scheduled. Patient goal is to stay positive. Behavioral Recommendations: Attend to scheduled appt Assessment & Plan (07/14/2023 11:12 AM EST): 06/08-06/15/23 - [facility]. Started on Olanzapine & hydroxyzine. Patient has first outpatient appointment with psychiatrist at [facility] on the of this month. Patient [...] with a new therapist. Met with medical manager nursing home, Peter Minaya, today. Assessment & Plan (01/20/2022 10:10 AM EDT): Just started on sertraline at [facility]. Is in ongoing therapy advised discussing eating and weight concerns with therapist Assessment & Plan (10/21/2021 7:53 PM EDT): On no meds Assessment & Plan (08/27/2021 3:26 PM EST): Sees therapist weekly from [facility]. Sees Manuela Jeffries from [facility] for medications. Currently on sertraline 25 mg daily with trazodone nightly as needed. Has tried multiple other medications including fluoxetine, Escitalopram, bupropion, mirtazapine. Assessment & Plan (03/31/2021 3:37 PM EDT): Followed by Manuela Jeffries at [facility]. Started on Escitalopram at the [...] hoping that once Mich[facility] is [facility] that psychiatry will take over [...] in 1 week Will ask provider at [facility] to follow weekly until Desi is connected to [facility] Michaelle is to go back to in [...] if they are to get SSRI from [place] Follow up in 1-2 weeks on 25 [...] Type Department Care Team Description 05/22/2025 Telephone [facility] [address] [place] [address] Deepti Banerjee LPN Overdue labs [...] Family history of No history of *Sudden /ME under 55, No Family history of No history of Hyperlipidemia Mother Laquita Fernandez Alive Mother: [place] castellanos and well Other Family history of Sudden /ME under age 55, Family history of Diabetes [...] the last 12 months, has t he [employer], gas, oil, or water [employer] threatened to shut off your services in [...] Additional history exists Procedures * Due to [place] law, this organization might not be sharing [...] to Health Maintenance Results * Due to [place] law, this organization might not be sharing sensitive test results. * (ABNORMAL) POCT Urinalysis Dipstick (03/22/2025 9:12 AM EDT) Leukocytes, Urine 3+(A) Negative n [facility] Comment:500 Pierre/uL Nitrite, Urine +(A) Negative n eg pos [facility] Urobilinogen, Urine 1+ 0.1 - 1 [facility] Comment:2 mg/dL Protein, Urine neg Negative n [facility] pH, Urine 6.0 4.6 - 10 [facility] BLOOD 1+(A) Negative n [facility] Comment:25 Arturo/uL Specific Matador, Urine 1.015 1.0003 - 1.03 [facility] Ketones, Urine neg Negative n [facility] Bilirubin, Urine, POC 1+(A) Negative n eg [facility] Comment:1 mg/dL Glucose neg Negative n [facility] Urine 03/22/2025 9:12 AM EDT 03/22/2025 9:12 AM EDT Narrative [facility] - 03/22/2025 9:12 AM EDT Charlie ([id number]) [facility] 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 Dies: 01 Testing Performed at [facility] [address] [place] [address] Transportation Planning Engineer: Eva Max DO CLIA: [id number] Chelsie Armas NP POINT OF CARE TEST ORDERABLES Final Result Performing Organization Address City/State/[facility] Co de Phone Number [facility] [address] [place] [address] * Chlamydia and Gonorrhea, Amplified (02/01/2025 8:52 AM EDT) C trach TORRES Negative Negative [facility] N gonorrhoeae TORRES Negative Negative [facility] Urine (Urine) 02/01/2025 8:5 2 AM EDT 02/01/2025 Comment:UR Narrative [facility] - 02/02/2025 3:05 PM EDT Performed at: 01 [facility] [address], [place] [id number] Transportation Planning Engineer: Scott Craig MD, Phone: [phone] us Monserrat Godwin NP LAB MICROBIOLOGY - GENERAL ORDER SHARA Final Result Performing Organization Address City/[facility] Co de Phone Number [facility] [address] [place] [address] * Lipid panel (07/14/2023 11:36 AM EST) [facility] Cholesterol, Total 161 (<170) MG/DL [facility] HDL 65 (>45) MG/DL [facility] Non-HDL Cholesterol 96 (<120) MG/DL [facility] Comment: Testing performed or reported by [facility], a Service of [facility], [address] [place] [id number] Scott Craig MD, Export Administrator [facility]# [id number] Blood 07/14/2023 11:3 6 AM EST 07/14/2023 11:39 AM EST us Farzana Bartholomew MD LAB BLOOD ORDERABLES Final Resul t Performing Organization Address City/[facility] Co de Phone Number [facility] from Last 3 Months or Most Recently Relevant to Health Maintenance Insurance [facility] [employer] [facility] [employer] Care Teams Veneer Sheet Repairer Relationship Specialty Start Date End Date Janee Peters MD [address] [place] [address] PCP - General Pediatrics 03/04/24
--- OUTSIDE RECORDS SUMMARY | 2025-07-01 17:11 | XMS_ITS | Encounter Summary ---
Author Organization [facility] Address [address] [place] [address] Phone Care Team Providers Care Economics Instructor Name Role Phone Janee Peters MD Primary Care Provider [phone] Encounter Details Date Type Department Care Team (Late st Contact Info) Description 04/18/2014 Documentation [facility] [place] [facility] [address] [place] [address] Family Medicine, Physician [address] [place] [address] Social History Tobacco Use Types [...] on filedocumented in this encounter Care Teams Economics Instructor Relationship Specialty Start Date End Date Janee Peters MD [address] [place] [address] PCP - General Pediatrics 03/04/24 documented as of this encounter
--- OUTSIDE RECORDS SUMMARY | 2025-07-01 17:11 | XMS_ITS | Encounter Summary ---
Author Organization [facility] Address [address] [place] [phone] Phone Care Team Providers Care Production Support Developer Name Role Phone Janee Peters MD Primary Care Provider [phone] Encounter Details Date Type Department Care Team (Late st Contact Info) Description 04/19/2014 Documentation [facility] [place] [address] [place] [address] Family Medicine, Physician [address] [place] [address] Social History Tobacco Use Types [...] on filedocumented in this encounter Care Teams Production Support Developer Relationship Specialty Start Date End Date Janee Peters MD [address] [place] [id number] PCP - General Pediatrics 03/04/24 documented as of this encounter
--- OUTSIDE RECORDS SUMMARY | 2025-07-01 17:11 | XMS_ITS | Encounter Summary ---
Author Organization [facility] Address [address] [place] [address] Phone Care Team Providers Care Central Supply Manager Name Role Phone Janee Peters MD Primary Care Provider Encounter Details Date Type Department Care Team (Late st Contact Info) Description 02/18/2017 Conversion Encounter [facility] [address] [place] [address] Social History Tobacco Use Types Packs/Day Years [...] on filedocumented in this encounter Care Teams Central Supply Manager Relationship Specialty Start Date End Date Janee Peters MD [address] [place] [address] PCP - General Pediatrics 03/04/24 documented as of this encounter
--- OUTSIDE RECORDS SUMMARY | 2025-07-01 17:11 | XMS_ITS | Encounter Summary ---
Author Organization [facility] Address [address] [place] [address] Phone Care Team Providers Care Sas Sql Developer Name Role Phone Janee Peters MD Primary Care Provider [phone] Reason for Visit * Reason Comments Med Refill Encounter Details Date Type Department Care Team (Late st Contact Info) Description 11/02/2020 Refill [facility] [address] [place] [address] Farzana Bartholomew MD [address] [place] [address] Adjustment disorder with mixed anxiety and depressed [...] mood documented in this encounter Care Teams Sas Sql Developer Relationship Specialty Start Date End Date Janee Peters MD [address] [place] [address] PCP - General Pediatrics 03/04/24 documented as of this encounter
--- OUTSIDE RECORDS SUMMARY | 2025-07-01 17:11 | XMS_ITS | Encounter Summary ---
Author Organization [facility] Address [address] [place] [address] Phone Care Team Providers Care Divorce Lawyer Name Role Phone Janee Peters MD Primary Care Provider Encounter Details Date Type Department Care Team (Late st Contact Info) Description 04/20/2014 Documentation [facility] [address] [place] [address] Family Medicine, Physician [address] [place] [address] Social History Tobacco Use Types [...] on filedocumented in this encounter Care Teams Divorce Lawyer Relationship Specialty Start Date End Date Janee Peters MD [address] [place] [address] PCP - General Pediatrics 03/04/24 documented as of this encounter
--- OUTSIDE RECORDS SUMMARY | 2025-07-01 17:11 | XMS_ITS | Encounter Summary ---
Author Organization [facility] Address [address] [place] [address] Phone Care Team Providers Care Pig Lead Melter Helper Name Role Phone Janee Peters MD Primary Care Provider [phone] Encounter Details Date Type Department Care Team (Late st Contact Info) Description 04/17/2014 Documentation [facility] [place] Medicine [address] [place] [address] Family Medicine, Physician [address] [place] [address] Social History Tobacco Use Types [...] on filedocumented in this encounter Care Teams Pig Lead Melter Helper Relationship Specialty Start Date End Date Janee Peters MD [address] [place] [address] PCP - General Pediatrics 03/04/24 documented as of this encounter
== END 2025-07-01 17:14 | disposition left against medical advice (07) ==
LOC: HO.ED 17:08
PROVIDERS: Emergency Provider Emergency Medicine
DX: R05.9 Cough, unspecified (principal); R11.2 Nausea with vomiting, unspecified; Z53.29 Procedure and treatment not carried out because of patient's decision for other reasons
CPT/HCPCS: 99281

== ENCOUNTER 2025-07-03 05:16 | Emergency (ER) | payer OTHER, SELFPAY ==
--- OUTSIDE RECORDS SUMMARY | 2025-07-02 16:15 | XMS_ITS | Encounter Summary ---
Author Organization [facility] Address [address] [place] [address] Phone Care Team Providers Care Masonry Inspector Name Role Phone Janee Peters MD Primary Care Provider [phone] Reason for Visit * Reason Comments Follow-up [facility] er on 06/29/2025. Positive for Flu. Vomiting Encounter Details Date Type Department Care Team (Late st Contact Info) Description 07/02/2025 4:15 PM EST Office Visit [facility] [place] [address] [place] [address] Consuelo Talbot MD [address] [place] [address] Influenza A (Primary Dx); Nausea Social History Tobacco Use Types Packs/Day Years [...] PM EST documented as of this encounter Last Filed Vital Signs Vital Sign Reading Time Taken Comments Blood Pressure - - Pulse - - Temperature 37.6 C (99.6 F) 07/02/2025 4:07 PM EST Respiratory Rate - - Oxygen Saturation - - Inhaled Oxygen Concentration - - Weight 49.3 kg (108 lb 9.6 oz) 07/02/2025 4:07 P M EST Height - - Body Mass Index 19.55 11/01/2024 10:43 AM EDT documented in this encounter Progress Notes * Consuelo Talbot MD - 07/02/2025 4:15 PM EST Chief Complaint Follow-up ([facility] on 06/29/2025. Positive for Flu. ) and Vomiting Michaelle is a 20yr female who presents to the office with her mother, whose name is Laquita Fernandez. History of Present Illness Reviewed ED visit note Started feeling sick [place] [facility] [place] with nausea, vomiting, abd pain, cough and felt weak Dx'd with Flu A Was given scripts for Zofran and Benzonatate Was given 10 Zofran pills (4 mg) Has 2-3 left Last taken yesterday or the day before She doesn't like the way it tastes and doesn't like that it has to melt [place] warm this morning Still having nausea Has vomited 10 times today Not able to keep anything down Has tried to drink water and gingerale Tried soup and crackers, pineapple, yogurt Has not been able to keep anything down Stomach still hurts Has urinated twice today - last time about an hour ago Has lost 9 lbs since March Mom and brother are sick also Review of Systems Constitutional: Positive for fever. Negative for chills and fatigue. HENT: Positive for congestion and rhinorrhea. Negative for sore throat. Respiratory: Positive for cough. Negative for shortness of breath. Gastrointestinal: Positive for diarrhea, nausea and vomiting. Negative for abdominal pain. Musculoskeletal: Negative for myalgias. Skin: Negative for rash. Reviewed this visit: Medications Allergies Menstrual History Current Outpatient Medications: ??? benzonatate 100 MG capsule, TAKE 1 CAPSULE (100 MG) BY MOUTH THREE TIMES A DAY NEEDED FOR COUGH, Disp: , Rfl: ??? hydrOXYzine 25 MG tablet, Take 1 tablet (25 mg total) by mouth every 8 (eight) hours as needed for anxiety., Disp: 30 tablet, Rfl: 1 ??? OLANZapine 7.5 MG tablet, , Disp: , Rfl: ??? ondansetron ODT 4 MG disintegrating tablet, TAKE 1 TABLET BY MOUTH EVERY 8 HOURS NEEDED FOR NAUSEA AND VOMITING, Disp: , Rfl: ??? Scar Treatment Products (ScarAway) gel, Apply 1 Application topically daily as needed (scar)., Disp: 20 g, Rfl: 1 ??? ondansetron 4 MG tablet, Take 1 tablet (4 mg total) by mouth every 8 (eight) hours as needed for nausea or vomiting., Disp: 12 tablet, Rfl: 0 No Known Allergies Vitals: 07/02/25 1607 Temp: 99.6 ??F (37.6 ??C) TempSrc: Tympanic Weight: 108 lb 9.6 oz (49.3 kg) GEN: Thin, mildly ill appearing young woman, alert, no acute distress. EYES: Conjunctiva clear, no discharge, eyelids wnl. EARS: TMs wnl bilaterally. NOSE: No rhinorrhea, no nasal congestion. ORAL: Moist mucous membranes. No lesion, no erythema, exudate or petechiae. NECK: Supple, no significant adenopathy. COR: RRR, 84/min, nml S1 and S2, no rubs, murmurs, or gallops. PULM: Clear to auscultation. No grunting, flaring, or retracting. ABD: Soft, + BS, non-distended, sl tender centrally, no G/R, no organomegaly. EXT: Warm, well perfused. No results found for any visits on 07/02/25. Assessment and Plan Rin was seen today for follow-up and vomiting. Influenza A (Primary) - ondansetron 4 MG tablet; Take 1 tablet (4 mg total) by mouth every 8 (eight) hours as needed for nausea or vomiting., Starting 07/02/2025, Normal Nausea Discussed with patient and Mom at length HR of 84 reassuring and not consistent with dehydration though am concerned about her history aboutnot being able to keep anything down Will try Ondansetron pills she can swallow, which she prefers Can take 1-2 (4 mg) pills at a time Q 8 hours Take small sips of fluids frequently - they are going to store to get Pedialyte now Advised a glass an hour, at least Recommended going to ED if she continues not to be able to keep anything down - Mom understands Reviewed what to watch for Return as needed Advised recheck visit in 2 weeks with PCP because of weight loss - An independent historian was used today due to the patient's age or intellectual disability. On the date of this encounter, I personally performed, for a total time of 30 minutes, both [id number] and [id number]-[id number]-face services which included: reviewing records, obtaining patient history, performing a medically appropriate examination, counseling and educating the patient/family/caregiver and documenting clinical information in the electronic health record documented in this encounter Plan of Treatment Upcoming Encounters Date Type Department Care Team (Late st Contact Info) Description 07/16/2025 2:15 PM EST Office Visit [facility] [place] [address] [place] [address] Janee Peters MD [address] [place] [address] documented as of this encounter Visit Diagnoses Diagnosis Influenza A- Primary Influenza with other respiratory manifestations Nausea Nausea alone documented in this encounter Care Teams Masonry Inspector Relationship Specialty Start Date End Date Janee Peters MD [address] [place] [address] PCP - General Pediatrics 03/04/24 documented as of this encounter
[2025-07-03 07:22] LABS: Hematocrit 43.0 % (37.0-47.0); Hemoglobin 14.4 g/dl (12.0-16.0); Imm Gran Abs Auto 0.04 X10*3/uL (0.00-0.03); Imm Gran Pct Auto 0.5 % (0.0-0.4); Lymphocytes Absolute Auto 1.6 X10*3/uL (1.2-4.9); MANUAL DIFF FLAG SCAN; Mean Corpuscular HGB Conc 33.5 g/dl (31.0-35.0); Mean Corpuscular Hemoglobin 29.1 pg (27.0-33.0); Mean Corpuscular Volume 87.0 fL (80.0-98.0); NRBC Abs Auto 0.000 X10*3/uL (0.0-0.012); NRBC Pct Auto 0.0 /100WBC (0.0-0.2); Platelet Count 285 X10*3/uL (160-400); Red Blood Count 4.94 X10*6/uL (4.20-5.50); SCAN SMEAR FLAG 1; White Blood Count 8.7 X10*3/uL (4.8-10.8)
[2025-07-03 08:28] LABS: Anion Gap 17 (12-20); Carbon Dioxide 29 mmol/L (22-29); Chloride 95 mmol/L (96-108); Potassium 3.3 mmol/L (3.3-5.1); Sodium 138 mmol/L (135-145)
--- NOTE | 2025-07-03 08:44 | ED_ITS ---
HPI - Weakness General Stated complaint: Flu Like Time Seen by Provider: 07/03/25 08:41 Source: patient Mode of arrival: ambulatory Limitations: no limitations History of Present Illness ED Provider: HPI Narrative: 20-year-old female with a history of depression, cannabis use disorder, cyclic vomiting, recent diagnosis with the influenza a on 06/29/2025, reports that she still feels dehydrated and able to tolerate anything p.o., continues however to vape THC. Subjective fevers and chills, no dysuria no hematuria epigastric abdominal pain. Related Data Home Medications ?Medication ?Instructions ?Recorded ?Confirmed omeprazole 20 mg capsule,delayed 20 mg PO DAILY 06/09/23 release Previous Rx's ?Medication ?Instructions ?Recorded hydroxyzine HCl 25 mg tablet 25 mg PO BID PRN Anxiety 30 days 06/14/23 #60 tabs nicotine (polacrilex) 2 mg gum 2 mg buccal Q2H PRN Rick otine 06/14/23 Cravings 30 days #120 ea nicotine 14 mg/24 hr daily 14 mg transdermal DAILY 28 days 06/14/23 transdermal patch #28 ea olanzapine 7.5 mg tablet 7.5 mg PO BEDTIME 30 days #3 0 tabs 06/14/23 peg 400-propylene glycol 0.4 %-0.3 2 drp ophthalmic (e ye) Q12H PRN 06/14/23 % eye gel drops (Systane Gel) Eye discharge/dry eyes 3 0 days #10 mL famotidine 20 mg tablet (Pepcid) 20 mg PO DAILY PRN ab dominal 03/01/24 discomfort #30 tabs ondansetron 4 mg disintegrating 4 mg PO Q8H PRN nausea and 03/01/24 tablet vomiting #20 tabs promethazine 12.5 mg tablet 12.5 mg PO Q4-6H PRN nause a and 03/03/24 vomiting #10 tabs sucralfate 1 gram tablet (Carafate) 1 g PO BID #14 tab s 03/03/24 diphenhydramine HCl 25 mg capsule 50 mg (2 x 25 mg) PO Q6H PRN 04/01/24 headache, nausea, vomiting #20 caps metoclopramide HCl 10 mg tablet 10 mg PO Q6H PRN nause a and 09/28/24 (Reglan) vomiting #15 tabs ondansetron 8 mg disintegrating 8 mg PO Q8H PRN nausea and 04/01/24 tablet vomiting #15 tabs benzonatate 100 mg capsule 100 mg PO TID PRN cough #15 caps 06/26/24 benzonatate 100 mg capsule 100 mg PO TID PRN cough #10 caps 06/29/25 ondansetron 4 mg disintegrating 4 mg PO Q8H PRN nausea and 06/29/25 tablet vomiting #10 tabs ondansetron 4 mg disintegrating 4 mg PO Q8H PRN nausea and 07/03/25 tablet vomiting #4 tabs Allergies Allergy/AdvReac Type Severity Reaction Status Date / Time No Known Allergies Allergy Verified 07/01/25 11:52 Review of Systems 2 Constitutional: Constitutional: Reports as per [facility] Past Medical History Medical History Medical clearance for psychiatric admission Eating disorder Seasonal depression Anxiety Depression Social History Social History Household Members: Family Housing: Apartment Alcohol intake: never Patient Tobacco Use Status: Never used Tobacco e-Cigarette/Vaping Use: Currently Using Substance Use Type: Marijuana Advance Directives: No Advance Directives Information Provided: Yes service: No Sexual orientation: Straight/Heterosexual Physical Exam 2 Exam: Exam: ?General: ??looks age appropriate ?No scleral icterus, uvula midline, no tonsillar exudates Neck: No lymphadenopathy ?CV: RRR, no obvious murmurs appreciated ?Resp: ?No wheezing rales rhonchi no stridor moving air well Abd: ?Bowel sounds are present, mild epigastric tenderness no rebound no rigidity MSK: FROM, strength 5/5 all extremities Skin: Warm, dry, intact, ?Neuro: ?Alert and oriented x3, moving upper and lower extremities symmetrically, no obvious facial asymmetry noted, cranial nerves 2-12 intact Medical Decision Making Medical Decision Making MDM Narrative: 8:48 AM 07/03/2025 (Dr. Eddi Silvestre): Presenting with reports of nausea and vomiting, clinically does not appear to be dehydrated, and fairly benign abdominal exam, I spoke with the patient at length regarding using marijuana at the time of acute viral illness and her symptoms, she was seen on the and discharged home with Chitra she should continue utilizing that, see my discharge instructions Differential Diagnosis Differential Diagnoses: The differential diagnosis associated with the presentation includes (Dehydration, cyclic vomiting syndrome, electrolyte derangements, pneumonia) Admission/Observation Consideration of admission/observation: Escalation of care including admission/observation considered Lab Data MDM Lab Attestation statement: I reviewed the patient's lab results. 07/03/25 05:56 07/03/25 05:56 Labs: Lab Results 07/03/25 Range/Units 05:56 WBC 8.7 (4.8-10.8) X10*3/uL RBC 4.94 (4.20-5.50) X10*6/uL Hgb 14.4 (12.0-16.0) g/dl Hct 43.0 (37.0-47.0) % MCV 87.0 (80.0-98.0) fL MCH 29.1 (27.0-33.0) pg MCHC 33.5 (31.0-35.0) g/dl RDW 11.9 (11.0-16.0) % Plt Count 285 (160-400) X10*3/uL MPV 9.0 L (9.4-12.3) fL Immature Gran % (Auto) 0.5 H (0.0-0.4) % Neut % (Auto) 68.1 (45-73) % Lymph % (Auto) 18.7 L (20-40) % [place] % (Auto) 12.5 H (2-11) % Eos % (Auto) 0.0 (0-4) % Baso % (Auto) 0.2 (0-2) % Lymph # (Auto) 1.6 (1.2-4.9) X10*3/uL [place] # (Auto) 1.1 (0.1-1.2) X10*3/uL Eos # (Auto) 0.0 (0.0-0.4) X10*3/uL Baso # (Auto) 0.0 (0.0-0.2) X10*3/uL Abs Immat Gran (auto) 0.04 H (0.00-0.03) X10*3/uL Absolute Neuts (auto) 5.9 (2.0-8.3) x10*3/uL Absolute Nucleated RBC 0.000 (0.0-0.012) X10*3/uL Nucleated RBC % (auto) 0.0 (0.0-0.2) /100WBC Smear Tech's Comments VERIFIED Sodium 138 (135-145) mmol/L Potassium 3.3 (3.3-5.1) mmol/L Chloride 95 L (96-108) mmol/L Carbon Dioxide 29 (22-29) mmol/L Anion Gap 17 (12-20) Discharge Plan Discharge Clinical Impression: Nausea and vomiting, Cannabis use disorder Additional Instructions: Using cannabis is not helping you at this time, actually with a history of cyclic vomiting you should not be using any marijuana products in any form, you did receive fluids and Zofran and you can continue using Zofran at home, otherwise make sure to find the diet that works for you right now I recommend meat based broth with salt with a vegetables, meat throughout the day to keep yourself nourished, toast, and then completely avoiding marijuana and fallen up with the primary care physician, There was no indication that you were dehydrated based on blood work or physical examination, viral symptoms are worse on days 3-5 after the onset and so you she has been now on the final stages of this. Prescriptions: New ondansetron 4 mg tablet,disintegrating 4 mg PO Q8H PRN (Reason: nausea and vomiting) Qty: 4 0RF No Action omeprazole 20 mg Capsule,Delayed Release(Dr/Ec) 20 mg PO DAILY nicotine 14 mg/24 hr Patch 24 Hour 14 mg transdermal DAILY 28 Days Qty: 28 1RF nicotine (polacrilex) 2 mg Gum 2 mg buccal Q2H PRN (Reason: Nicotine Cravings) 30 Days Qty: 120 1RF olanzapine 7.5 mg Tablet 7.5 mg PO BEDTIME 30 Days Qty: 30 1RF Systane Gel 0.4-0.3 % Drops,Gel 2 drp ophthalmic (eye) Q12H PRN (Reason: Eye discharge/dry eyes) 30 Days Qty: 10 0RF hydroxyzine HCl 25 mg Tablet 25 mg PO BID PRN (Reason: Anxiety) 30 Days Qty: 60 1RF promethazine 12.5 mg tablet 12.5 mg PO Q4-6H PRN (Reason: nausea and vomiting) Qty: 10 0RF sucralfate [Carafate] 1 gram tablet 1 g PO BID Qty: 14 0RF ondansetron 4 mg tablet,disintegrating 4 mg PO Q8H PRN (Reason: nausea and vomiting) Qty: 10 0RF benzonatate 100 mg capsule 100 mg PO TID PRN (Reason: cough) Qty: 10 0RF famotidine [Pepcid] 20 mg tablet 20 mg PO DAILY PRN (Reason: abdominal discomfort) Qty: 30 0RF ondansetron 4 mg tablet,disintegrating 4 mg PO Q8H PRN (Reason: nausea and vomiting) Qty: 20 0RF diphenhydramine HCl 25 mg capsule 50 mg PO Q6H PRN (Reason: headache, nausea, vomiting) Qty: 20 0RF metoclopramide HCl [Reglan] 10 mg tablet 10 mg PO Q6H PRN (Reason: nausea and vomiting) Qty: 15 0RF ondansetron 8 mg tablet,disintegrating 8 mg PO Q8H PRN (Reason: nausea and vomiting) Qty: 15 0RF benzonatate 100 mg capsule 100 mg PO TID PRN (Reason: cough) Qty: 15 0RF Print Language: Belarusian
[2025-07-03 08:49] LABS: Alanine Aminotransferase 12 U/L (0-31); Albumin Level 4.6 g/dL (3.5-5.0); Alkaline Phosphatase 63 U/L (39-117); Aspartate Amino Transferase 24 U/L (5-31); Blood Urea Nitrogen 13 mg/dL (9-16); Estimated Glomerular Filt Rate > 60; Lipase 11 U/L (8-78); Magnesium 2.4 mg/dL (1.6-2.6); Total Protein 8.2 g/dL (6.5-8.0)
--- OUTSIDE RECORDS SUMMARY | 2025-07-03 08:50 | XMS_ITS | Encounter Summary ---
Author Organization [facility] Address [address] [place] [address] Phone Care Team Providers Care Document Control Coordinator Name Role Phone Janee Peters MD Primary Care Provider [phone] Encounter Details Date Type Department Care Team (Late st Contact Info) Description 04/20/2014 Documentation [facility] Family Medicine [address] [place] [address] Family Medicine, Physician [address] [place] [address] Social History Tobacco Use Types [...] as of this encounter Plan of Treatment Upcoming Encounters Date Type Department Care Team (Late st Contact Info) Description 07/16/2025 2:15 PM EST Office Visit [facility] [place] [address] [place] [address] Janee Peters MD [address], [place] [phone] documented as of this encounter Visit Diagnoses Not on filedocumented in this encounter Care Teams Document Control Coordinator Relationship Specialty Start Date End Date Janee Peters MD [address] [place] [address] PCP - General Pediatrics 03/04/24 documented as of this encounter
--- OUTSIDE RECORDS SUMMARY | 2025-07-03 08:50 | XMS_ITS | Clinical Summary ---
Author Organization [employer] [facility] ity Address [address] [place] [address] Care Team Providers Care Incinerator Plant Supervisor Name Role Phone Unavailable Primary Care Provider [...]
--- OUTSIDE RECORDS SUMMARY | 2025-07-03 08:50 | XMS_ITS | Encounter Summary ---
Author Organization [facility] Address [address] [place] [address] Phone Care Team Providers Care Glove Pairer Name Role Phone Janee Peters MD Primary Care Provider [phone] Encounter Details Date Type Department Care Team (Late st Contact Info) Description 04/17/2014 Documentation [facility] Family Medicine [address] [place] [address] Family Medicine, Physician [address] [place] [address] Social History Tobacco Use Types [...] Description 07/16/2025 2:15 PM EST Office Visit [facility] [place] [address] [place] [address] Janee Peters MD [address] [place], [place] [phone] documented as of this encounter Visit Diagnoses Not on filedocumented in this encounter Care Teams Glove Pairer Relationship Specialty Start Date End Date Janee Peters MD [address] [place] [address] PCP - General Pediatrics 03/04/24 documented as of this encounter
--- OUTSIDE RECORDS SUMMARY | 2025-07-03 08:50 | XMS_ITS | Encounter Summary ---
Author Organization [facility] Address [address] [place] [address] Phone Care Team Providers Care Php Web Developer Name Role Phone Janee Peters MD Primary Care Provider [phone] Reason for Visit * Reason Comments Med Refill Encounter Details Date Type Department Care Team (Late st Contact Info) Description 11/02/2020 Refill [facility] [place] [address] [place] [address] Farzana Bartholomew MD [address] [place] [address] Adjustment disorder with mixed anxiety and depressed [...] Description 07/16/2025 2:15 PM EST Office Visit [facility] [place] [address] [place] [address] Janee Peters MD [address] [place] [address] documented as of this encounter Visit Diagnoses Diagnosis Adjustment disorder with mixed anxiety and depressed mood documented in this encounter Care Teams Php Web Developer Relationship Specialty Start Date End Date Janee Peters MD [address] [place] [address] PCP - General Pediatrics 03/04/24 documented as of this encounter
--- OUTSIDE RECORDS SUMMARY | 2025-07-03 08:50 | XMS_ITS | Clinical Summary ---
Author Organization [facility] Address [address] [place] [address] Phone Care Team Providers Care Electrical Electronics Engineer Name Role Phone Janee Peters MD Primary Care Provider [phone] Allergies No known active allergies Medications OLANZapine 7.5 MG tablet 07/12/19 24 Active hydrOXYzine 25 MG tabletIndications: Adjustment disorder with mixed anxiety and depressed mood Take 1 tablet (25 mg total) by mouth every 8 (eight) hours as needed for anxiety. 30 tablet 1 11/02/19 25 Active Scar Treatment Products (ScarAway) gelIndications:Sca r Apply 1 Application topically daily as needed (scar). 20 g 1 11/02/19 25 Active benzonatate 100 MG capsule TAKE 1 CAPSULE (100 MG) BY MOUTH THREE TIMES A DAY NEEDED FOR COUGH 06/29/20 25 Active ondansetron ODT 4 MG disintegrating tablet TAKE 1 TABLET BY MOUTH EVERY 8 HOURS NEEDED FOR NAUSEA AND VOMITING 06/29/20 25 Active ondansetron 4 MG tabletIndications: Influenza A Take 1 tablet (4 mg total) by mouth every 8 (eight) hours as needed for nausea or vomiting. 12 tablet 07/02/20 25 Active Active Problems Problem Noted Date Diagnosed Date Abnormal vision 11/01/2024 Overview (11/01/2024): 10/2024: Seeing eyecare provider at [facility] since 2022. Due for checkup. Assessment & Plan (11/01/2024 11:17 AM EDT): Seeing eyecare provider at [facility] since 2022. Due for checkup. Wheeze [...] nicotine multiple times a day. Psychiatrist at [facility] gave her a nicotine patch but [...] with a therapist soon. Met with Cyndie Jimenez today, behavioral health child care aide, she will help connect Rin to a therapist. Weight loss, abnormal 01/20/2022 Assessment & Plan (07/14/2023 11:13 AM EST): Followed by [facility] gastroenterology. Has an appointment tomorrow. [...] fats to all meals. Adding PediaSure or [place] instant breakfast twice a day. Follow-up for weight check in 2 weeks. A call has been placed to her therapist, Merced, at [facility] in [facility] requesting callback. Michaelle has signed a release for me to speak to Merced. I plan to alert me again to my concerns about this eating disorder. Assessment & Plan (01/20/2022 1:08 PM EDT): Significant wt loss Thought of food and smell of food makes Michaelle nauseas No hx laxitive use, vomiting, Does [...] 02/2022 Early 07/2020 per family. Tested at [facility] (we have no record of this [...] Declined referral to Gender Identity clinic at [facility] at this time 08/27/2021: Preferred name Michaelle . Preferred pronouns they/them Diagnosis load October 2022 Assessment & Plan (03/31/2021 3:37 PM EDT): Goes by Rin Pronouns = they, them Adjustment disorder with mixed anxiety and depre ssed mood 05/27/2020 Overview (11/01/2024): Connected to [facility] therapist at [facility] 08/02/20 08/07/2020 : Low dose prozac started 10 mg QOD x 1 week 10/24: states side effects on prozac and zoloft 06/08-06/15/23 - [facility]. Started on Olanzapine & hydroxyzine 07/27/23; consult completed. Services will be bridged. Caleb 10/2024: Seeing psychiatrist Dr. Danae Garcia at [facility] every 3 months. Is on Olanzapine 7.5mg. Has not had a panic attack in a while, but at times does get anxious at school. Does not have a therapist per se; says she is close with her mother and also her school counselor. Assessment & Plan (11/01/2024 11:02 AM EDT): Seeing psychiatrist Dr. Danae Garcia at [facility] every 3 months. Is on [...] this moment. Referral to specialty services for Michaelle to begin outpatient nursing home therapy would be of benefit, considering mental health history. Follow up interventions focus on developing coping strategies would be scheduled, other referrals will be discussed and completed as necessary. PLAN: Follow up with [facility]; In office visit scheduled. Patient goal is to stay positive. Behavioral Recommendations: Attend to scheduled appt Assessment & Plan (07/14/2023 11:12 AM EST): 06/08-06/15/23 - [facility] at [facility]. Started on Olanzapine & hydroxyzine. Patient has first outpatient appointment with psychiatrist at [facility] on the of this month. Patient has [...] with a new therapist. Met with medical home health billing specialist, Peter Minaya, today. Assessment & Plan (01/20/2022 10:10 AM EDT): Just started on sertraline at [facility]. Is in ongoing therapy advised discussing eating and weight concerns with therapist Assessment & Plan (10/21/2021 7:53 PM EDT): On no meds Assessment & Plan (08/27/2021 3:26 PM EST): Sees therapist weekly from [facility]. Sees Manuela Jeffries from [facility] for medications. Currently on sertraline 25 mg daily with trazodone nightly as needed. Has tried multiple other medications including fluoxetine, Escitalopram, bupropion, mirtazapine. Assessment & Plan (03/31/2021 3:37 PM EDT): Followed by Manuela Jeffries at [facility]. Started on Escitalopram at the [...] hoping that once Michaelle [facility] that psychiatry will take over prescribing [...] in 1 week Will ask provider at [facility] to follow weekly until [facility] is connected to [facility] Michaelle is to go back to in person school next week. They are concerned about this. But Michaelel's mother thinks it will be good for [...] if they are to get SSRI from pr Follow up in 1-2 weeks on 25 mg of sertraline, if doing well will have follow up in another month Assessment & Plan (09/11/2020 1:51 PM EST): Reviewed Safety plan done by Desi & Maryellen Singh ( therapist) 09/02/20 patient did verbal [...] Encounters Date Type Department Care Team Description 07/02/2025 4:15 PM EST Office Visit [facility] [address] [place] [address] Consuelo Talbot MD Influenza A (Primary Dx); Nausea 05/22/2025 Telephone [facility] [address] [place] [address] Deepti Banerjee LPN Overdue labs from Last [...] Hypertension Maternal Grandmother Anxiety disorder Mother Laquita John Depression Mother Laquita John Diabetes Paternal Grandfather Stroke Paternal Grandmother Relation Name Status Comments Brother Kg Mcdonald Alive Brother: atopi c derm Father Kg Mcdonald Alive Father: Alive a nd well Maternal Grandfather Materna l grandfather: Diabetes mellitus Maternal Grandmother Alive Materna l aunt: Cancer, Cirrhosis, No Family history of No history of *Sudden /[place] under 55, No Family history of No history of Hyperlipidemia Mother Laquita John Alive Mother: [place] castellanos and well Other Family history of Sudden /[place] under age 55, Family history of Diabetes [...] Pulse 83 01/29/2025 8:31 AM EDT Temperature 37.6 C (99.6 F) 07/02/2025 4:07 PM EST Respiratory Rate - - Oxygen Saturation 97% 12/01/2023 4:10 PM EDT Inhaled Oxygen Concentration - - Weight 49.3 kg (108 lb 9.6 oz) 07/02/2025 4:07 P M EST Height 158.8 cm (5' 2.5 ) 11/01/2024 10:43 AM ED T Body Mass Index 19.55 11/01/2024 10:43 AM EDT Plan of Treatment Upcoming Encounters Date Type Department Care Team (Late st Contact Info) Description 07/16/2025 2:15 PM EST Office Visit [facility] [place] [address] [place] [address] Janee Peters MD [address] [place] [address] Health Maintenance Due Date Last Done Comments HIV Screening 2020 Hepatitis C Screening 2023 LDL-C/Cholesterol 07/14/2024 07/14/2023 Influenza Vaccines (#1) 2025 11/02/19, 07/14/2023, 03/23/2022, Additional history exists COVID-19 Vaccine (4 - 2024-2 6 season) 2025 07/14/2023, 03/21/2021, 02/18/2021 Men B Vaccine (2 of 2 - Trum enba SCDM 2-dose series) 05/03/2025 11/01/2024 Glucose/HbA1C 03/22/2026 03/22/2025, 07/, 01/18/2018 DTaP,Tdap,and Td Vaccines (8 - Td [...] history exists Procedures * Due to [place] [employer] law, this organization might not be sharing [...] Health Maintenance Results * Due to [place] [employer] law, this organization might not be sharing sensitive test results. * (ABNORMAL) POCT Urinalysis Dipstick (03/22/2025 9:12 AM EDT) Leukocytes, Urine 3+(A) Negative n eg [facility] Jess HURTADO Comment:500 Pierre/uL Nitrite, Urine +(A) Negative n eg pos [facility] Urobilinogen, Urine 1+ 0.1 - 1 [facility] Jess HURTADO Comment:2 mg/dL Protein, Urine neg Negative n [facility] pH, Urine 6.0 4.6 - 10 [facility] BLOOD 1+(A) Negative n eg [facility] Jess HURTADO Comment:25 Arturo/uL Specific [place], Urine 1.015 1.0003 - 1.03 [facility] Ketones, Urine neg Negative n [facility] Bilirubin, Urine, POC 1+(A) Negative n [facility] Jess HURTADO Comment:1 mg/dL Glucose neg Negative n [facility] Urine 03/22/2025 9:12 AM EDT 03/22/2025 9:12 AM EDT Narrative [facility] LEANN HURTADO - 03/22/2025 9:12 AM EDT Charlie ([id number]) [facility] Ventilator Specialist: 01 Testing Performed at [facility] [address] [facility], [place] [address] Day Worker: Eva Max DO CLIA: [id number] Chelsie Armas WEB CONTENT MANAGER POINT OF CARE TEST ORDERABLES Final Result [facility] [address] [place] [address] * Chlamydia and Gonorrhea, Amplified (02/01/2025 8:52 AM EDT) [facility] C trach TORRES Negative Negative [facility] N gonorrhoeae TORRES Negative Negative [facility] Urine (Urine) 02/01/2025 8:5 2 AM EDT 02/01/2025 Comment:UR Narrative [facility] - 02/02/2025 3:05 PM EDT Performed at: 01 - [facility] [address], [address], [place], [place] [id number] Day Worker: Scott Craig MD, Phone: [phone] Monserrat Godwin NP LAB MICROBIOLOGY - GENERAL ORDER SHARA Final Result Performing Organization Address City/[facility]/ZIP Co de Phone Number [facility] [address] [place] [address] * Lipid panel (07/14/2023 11:36 AM EST) [facility] Cholesterol, Total 161 (<170) MG/DL [facility] HDL 65 (>45) MG/DL [facility] Non-HDL Cholesterol 96 (<120) MG/DL [facility] Comment: Testing performed or reported by [facility], a Service of [facility], [address] [place] [address] Scott Craig MD, Office Machine Technician CLIA# [id number] Blood 07/14/2023 11:3 6 AM EST 07/14/2023 11:39 AM EST Farzana Bartholomew MD LAB BLOOD ORDERABLES Final Resul t [facility] from Last 3 Months or Most Recently Relevant to Health Maintenance Insurance COMMERCIAL COMMERCIAL Care Teams Electrical Electronics Engineer Relationship Specialty Start Date End Date Janee Peters MD [address] [place] [address] PCP - General Pediatrics 03/04/24
--- OUTSIDE RECORDS SUMMARY | 2025-07-03 08:50 | XMS_ITS | Encounter Summary ---
Author Organization [facility] Address [address] [place] [address] Phone Care Team Providers Care Insulation Worker Name Role Phone Janee Peters MD Primary Care Provider [phone] Encounter Details Date Type Department Care Team (Late st Contact Info) Description 02/18/2017 Conversion Encounter [facility] [address] [place] [address] Social History Tobacco Use Types Packs/Day Years [...] Description 07/16/2025 2:15 PM EST Office Visit [facility] [address] [place] [address] Janee Peters MD [address] [place], [place] [phone] documented as of this encounter Visit Diagnoses Not on filedocumented in this encounter Care Teams Insulation Worker Relationship Specialty Start Date End Date Janee Peters MD [address] [place], [place] [phone] PCP - General Pediatrics 03/04/24 documented as of this encounter
--- OUTSIDE RECORDS SUMMARY | 2025-07-03 08:50 | XMS_ITS | Encounter Summary ---
Author Organization [facility] Address [address] [place] [id number] Phone Care Team Providers Care Order Filler Name Role Phone Janee Peters MD Primary Care Provider Encounter Details Date Type Department Care Team (Late st Contact Info) Description 04/19/2014 Documentation [facility] [place] Family Medicine [address] [place] [address] Family Medicine, Physician [address] [place] [address] Social History Tobacco Use Types [...] Description 07/16/2025 2:15 PM EST Office Visit [facility] [place] [address] [place] [address] Janee Peters MD [address] [place], [place] [phone] documented as of this encounter Visit Diagnoses Not on filedocumented in this encounter Care Teams Order Filler Relationship Specialty Start Date End Date Janee Peters MD [address] [place] [address] PCP - General Pediatrics 03/04/24 documented as of this encounter
--- OUTSIDE RECORDS SUMMARY | 2025-07-03 08:50 | XMS_ITS | Encounter Summary ---
Author Organization [facility] Address [address] [place] [phone] Phone Care Team Providers Care Road Supervisor Name Role Phone Janee Peters MD Primary Care Provider Encounter Details Date Type Department Care Team (Late st Contact Info) Description 04/18/2014 Documentation [facility] [place] Family Medicine [address] [place] [address] Family Medicine, Physician [address] [place] [address] Social History Tobacco Use Types [...] Description 07/16/2025 2:15 PM EST Office Visit [facility] [place] [address] [place] [address] Janee Peters MD [address] [place], [place] [phone] documented as of this encounter Visit Diagnoses Not on filedocumented in this encounter Care Teams Road Supervisor Relationship Specialty Start Date End Date Janee Peters MD [address] [place] [address] PCP - General Pediatrics 03/04/24 documented as of this encounter
[2025-07-03 10:08] VITALS: BP 131/80; PULSE 101; RESP 18; TEMP 36.6; O2SAT 96
== END 2025-07-03 10:09 | disposition home or self-care (01) ==
PROVIDERS: Emergency Provider Emergency Medicine
DX: R11.2 Nausea with vomiting, unspecified (principal); F12.988 Cannabis use, unspecified with other cannabis-induced disorder; F39 Unspecified mood [affective] disorder; F29 Unspecified psychosis not due to a substance or known physiological condition; Z79.899 Other long term (current) drug therapy
CPT/HCPCS: 36415; 80051; 80076; 82565; 82947; 83690; 83735; 84520; 84702; 85025; 99283